=== PATIENT | female | born 1940 | race Caucasian/White ===

== ENCOUNTER 2023-04-02 10:15 | Inpatient (IN) | payer MEDICARE, BC ==
[~2023-04-02] VITALS: Ht 165.1 cm; Wt 68.3 kg
[2023-04-15 12:29] LABS: BASOPHILS # (AUTO) 0.1 X10'3 (0-0.2); BASOPHILS % (AUTO) 0.9 % (0-1); EOSINOPHILS # (AUTO) 0.2 X10'3 (0-0.9); EOSINOPHILS % (AUTO) 2.6 % (0-6); LYMPHOCYTES # (AUTO) 1.7 X10'3 (1.1-4.8); LYMPHOCYTES % (AUTO) 18.9 % (21-51); MEAN CORPUSCULAR HEMOGLOBIN 27.1 PG (27.0-31.0); MEAN CORPUSCULAR VOLUME 82.1 FL (78-98); MEAN PLATELET VOLUME 7.8 FL (7.4-10.4); MONOCYTES # (AUTO) 0.8 X10'3 (0-0.9); MONOCYTES % (AUTO) 8.9 % (2-12); NEUTROPHILS # (AUTO) 6.1 X10'3 (1.8-7.7); NEUTROPHILS % (AUTO) 68.7 % (42-75); PRE OP HEMATOCRIT 38.6 % (35.0-45.0); PRE OP HEMOGLOBIN 12.7 g/dL (12.0-16.0); PRE OP PLATELET COUNT 274 X10'3 (140-440); PRE OP WHITE BLOOD COUNT 8.8 10'3 (4.8-10.8); RED CELL DISTRIBUTION WIDTH 17.4 % (11.5-14.5)
[2023-04-15 12:41] LABS: ALBUMIN 3.6 G/DL (3.4-5.0); ALKALINE PHOSPHATASE 87 IU/L (46-116); BLOOD UREA NITROGEN 20 MG/DL (7-18); CALCIUM 9.4 MG/DL (8.5-10.1); CHLORIDE 97 MMOL/L (99-107); CREATININE 1.25 MG/DL (0.40-0.90); PRE OP ALT 23 U/L (30-65); PRE OP ANION GAP 9 (8-16); PRE OP AST 27 U/L (10-37); PRE OP BILIRUB, TOTAL 0.6 MG/DL (0.0-1.0); PRE OP GLUCOSE 111 MG/DL (70-104); PRE OP POTASSIUM 3.7 MMOL/L (3.4-5.1); PRE OP SODIUM 133 MMOL/L (135-145); TOTAL CARBON DIOXIDE 26.9 MMOL/L (24-32); TOTAL PROTEIN 7.2 G/DL (6.4-8.2); eGFR 41 ML/MIN
[2023-04-15] MEDS ORDERED: PANT-47 PO (16:31)
[2023-04-15] MEDS ORDERED: ATOR40TA PO (16:31)
[2023-04-15] MEDS ORDERED: CLOP-32 PO (16:31)
[2023-04-15] MEDS ORDERED: FAMO40TA86 PO (16:31)
[2023-04-15] MEDS ORDERED: ASPI81TA52 PO (16:31)
[2023-04-15] MEDS ORDERED: DIPH-1055 PO (16:31)
[2023-04-15] MEDS ORDERED: METO-467 PO (16:31)
[2023-04-21] VITALS (24 sets, daily range): BP systolic 105–140; BP diastolic 50–78; PULSE 63–93; RESP 11–17; TEMP 97.4–98.1; O2SAT 90–99
[2023-04-21] MEDS ORDERED: ringers solution, lacted 1,000 ML IV SCH ×2 (05:00→07:25)
[2023-04-21] MEDS ORDERED: DOCUMENT DATE & TIME OF BETA-BLOCKER PO ONE (05:30)
[2023-04-21] MEDS ORDERED: metroNIDAZOLE-Flagyl 500mg/NS 100ML IVPB IV ONE (05:30)
[2023-04-21] MEDS ORDERED: MALTODEXTRIN/FRUCTOSE 0.68 KCAL/ML LIQUID 296ML BOTTLE PO ONE (05:30)
[2023-04-21] MEDS ORDERED: ceFOXitin 2GM-NS 100mL ADDvant 100 ML IV ONE (05:30)
[2023-04-21] MEDS ORDERED: famotidine 20mg tablet PO ONE (05:30)
[2023-04-21] MEDS ORDERED: tobramycin 40mg/ml inj ONE (07:02)
[2023-04-21] MEDS ORDERED: mineral oil 10ml sterile, topical TP ONE ×2 (07:02→07:23)
[2023-04-21] MEDS ORDERED: LIDOcaine 1% w/EPI 1:100,000 inj. MDV 50 ML VIAL ONE (07:03)
[2023-04-21] MEDS ORDERED: BUPIVAcaine/PF 2.5mg/ml (0.25%) 10ml vial ONE (07:03)
[2023-04-21] MEDS ORDERED: proCHLORperazine 10 MG/2 ml inj IV PRN (07:25)
[2023-04-21] MEDS ORDERED: morphine 2 MG/ML inj. syringe IV PRN (07:25)
[2023-04-21] MEDS ORDERED: ondansetron/PF 4mg/2ml inj IV PRN ×2 (07:25→14:25)
[2023-04-21] MEDS ORDERED: acetaminophen 1,000mg/100ml IV 100 ML IV PRN (07:25)
[2023-04-21] MEDS ORDERED: labetalol 20mg/4ml (5mg/ml) syringe IV PRN (07:25)
[2023-04-21] MEDS ORDERED: meperidine/PF 25mg/ml syringe IV PRN (07:25)
[2023-04-21] MEDS ORDERED: HYDROmorphone/PF 0.2 MG/ML SYRINGE IV PRN ×2 (07:25)
[2023-04-21] MEDS ORDERED: hydrALAZINE 20mg/ml inj. IV PRN (07:25)
[2023-04-21] MEDS ORDERED: fentaNYL /PF 50mcg/ml 5ml ampule ONE (07:35)
[2023-04-21] MEDS ORDERED: midazolam 1 mg/ML 2ml injection ONE (07:35)
[2023-04-21] MEDS ORDERED: sevoflurane 250ml liquid IH ONE (07:52)
[2023-04-21] MEDS ORDERED: rocuronium 10mg/ml inj IV ONE ×3 (08:23→13:57)
[2023-04-21] MEDS ORDERED: LIDOcaine 2% (20mg/ml) 5ml vial ONE (08:23)
[2023-04-21] MEDS ORDERED: propofol inj 20 ML IV ONE (08:23)
[2023-04-21] MEDS ORDERED: dexamethasone sod phosphate 4mg/ml inj. ONE (14:04)
[2023-04-21] MEDS ORDERED: ondansetron/PF 4mg/2ml inj ONE (14:04)
[2023-04-21] MEDS ORDERED: sugammadex 200mg/2ml injection IV ONE (14:06)
--- NOTE | 2023-04-21 14:20 | NUR ---
Received from OR via , accompanied by Anesthesiologist DR VILLAFANA and report given by Anesthesiolgist. VSS. 10 LITERS ON MASK AT 97%. IV IN LEFTWRIST 20G INTACT. F/C Addendum: 04/21/23 at 1619 by Codie Torres RN Amended: Links added.
[2023-04-21] MEDS ORDERED: HYDROcodone/acetaminophen 5mg/325mg tablet PO PRN (14:25)
[2023-04-21] MEDS ORDERED: naloxone 0.4 mg/ml inj IV PRN (14:25)
[2023-04-21] MEDS: morphine 4 MG/ML inj SYRINge IV PRN ×2 (14:56→15:10)
--- NOTE | 2023-04-21 16:10 | NUR ---
PATIENT MEETS DISCHARGE CRITERIA. PUT DENTURES BACK IN HER MOUTH. CALLED REPORT TO RN ON ORTHO AND TOOK PATIENT TO THE FLOOR. LOWERED AND LOCKED BED. CALL LIGHT AT [facility]. HOOKED PATIENT UP TO OXYGEN AT 5 LITERS. AND GAVE REPORT TO CHARGE NURSE THAT SHE NEEDED CONTINUOUS PULSE OX MONITORING Addendum: 04/21/23 at 1624 by Codie Torres RN Amended: Links added.
--- NOTE | 2023-04-21 16:23 | NUR ---
Report received from Codie MENDIETA. Patient on the unit. Family at bedside.
[2023-04-21] MEDS: metroNIDAZOLE-Flagyl 500mg/NS 100 ML IV SCH (16:50)
[2023-04-21] MEDS: ceFOXitin inj 1,000 MG in normal saline 100ml IV soln 100 ML IV SCH (17:52)
[2023-04-21] MEDS: potassium CL 20mEq in D5-1/2NS 1,000 ML IV SCH (17:52)
--- NOTE | 2023-04-21 18:37 | NUR ---
Report to Ike BARBER
[2023-04-21] MEDS: metoprolol tartrate 50mg tablet PO SCH (19:55)
[2023-04-21] MEDS: atorvastatin 20mg tablet PO SCH (19:55)
--- NOTE | 2023-04-21 20:00 | NUR ---
Agree with assessment done by Ike Morelos LVN.
[2023-04-21] MEDS ORDERED: famotidine 20mg tablet PO SCH (21:00)
[2023-04-22] VITALS (8 sets, daily range): BP systolic 95–106; BP diastolic 39–61; PULSE 55–78; RESP 15–16; TEMP 97–98.4; O2SAT 94–99
[2023-04-22] MEDS: metroNIDAZOLE-Flagyl 500mg/NS 100 ML IV SCH ×3 (00:09→15:06)
[2023-04-22] MEDS: ceFOXitin inj 1,000 MG in normal saline 100ml IV soln 100 ML IV SCH (00:10)
[2023-04-22 06:07] LABS: BASOPHILS % (AUTO) 0.2 % (0-1); EOSINOPHILS % (AUTO) 0 % (0-6); HEMATOCRIT 29.7 % (35.0-45.0); HEMOGLOBIN 9.7 g/dl (12.0-16.0); LYMPHOCYTES # (AUTO) 1.2 X10'3 (1.1-4.8); LYMPHOCYTES % (AUTO) 9.7 % (21-51); MEAN CORPUSCULAR HEMOGLOBIN 27.6 PG (27.0-31.0); MEAN CORPUSCULAR HGB CONC 32.5 g/dL (33.0-36.5); MEAN CORPUSCULAR VOLUME 84.9 FL (78-98); MEAN PLATELET VOLUME 7.7 FL (7.4-10.4); MONOCYTES # (AUTO) 0.9 X10'3 (0-0.9); MONOCYTES % (AUTO) 7.4 % (2-12); NEUTROPHILS # (AUTO) 10.5 X10'3 (1.8-7.7); NEUTROPHILS % (AUTO) 82.7 % (42-75); PLATELET COUNT 208 X10'3 (140-440); RED CELL DISTRIBUTION WIDTH 17.7 % (11.5-14.5); WHITE BLOOD COUNT 12.7 X10'3 (4.5-11.0)
[2023-04-22 06:13] LABS: ALBUMIN 2.2 G/DL (3.4-5.0); ANION GAP 7 (8-16); BLOOD UREA NITROGEN 12 MG/DL (7-18); CALCIUM 8.6 MG/DL (8.5-10.1); CHLORIDE 107 MMOL/L (99-107); GLUCOSE 143 MG/DL (70-104); POTASSIUM 3.3 MMOL/L (3.5-5.1); SODIUM 142 MMOL/L (135-145); TOTAL CARBON DIOXIDE 27.7 MMOL/L (24-32); eCRCL 39 ML/MIN; eGFR 53 ML/MIN
[2023-04-22] MEDS: pantoprazole 40mg Tablet.DR PO SCH (10:41)
[2023-04-22] MEDS: metoprolol tartrate 50mg tablet PO SCH ×2 (10:41→20:00)
[2023-04-22] MEDS: potassium CL 20mEq in D5-1/2NS 1,000 ML IV SCH (14:58)
[2023-04-22] MEDS ORDERED: potassium Cl 20 mEq SR tablet PO PRN (18:30)
[2023-04-22 21:05] LABS: HEMATOCRIT 29.9 % (35.0-45.0); HEMOGLOBIN 9.8 g/dl (12.0-16.0); MEAN CORPUSCULAR HEMOGLOBIN 27.1 PG (27.0-31.0); MEAN CORPUSCULAR HGB CONC 32.6 g/dL (33.0-36.5); MEAN CORPUSCULAR VOLUME 82.9 FL (78-98); MEAN PLATELET VOLUME 7.7 FL (7.4-10.4); PLATELET COUNT 226 X10'3 (140-440); RED BLOOD COUNT 3.61 X10'6 (4.20-5.60); RED CELL DISTRIBUTION WIDTH 17.8 % (11.5-14.5); WHITE BLOOD COUNT 13.2 X10'3 (4.5-11.0)
[2023-04-22] MEDS: famotidine 20mg tablet PO SCH (21:25)
[2023-04-22] MEDS: atorvastatin 20mg tablet PO SCH (21:25)
--- NOTE | 2023-04-23 06:33 | NUR ---
Problems reprioritized. Patient report given, questions answered & plan of care reviewed with echo Haney.
[2023-04-23 06:41] LABS: BASOPHILS % (AUTO) 0.3 % (0-1); EOSINOPHILS % (AUTO) 0.4 % (0-6); HEMATOCRIT 30.5 % (35.0-45.0); LYMPHOCYTES # (AUTO) 1.4 X10'3 (1.1-4.8); LYMPHOCYTES % (AUTO) 16.2 % (21-51); MEAN CORPUSCULAR HEMOGLOBIN 27.3 PG (27.0-31.0); MEAN CORPUSCULAR HGB CONC 32.7 g/dL (33.0-36.5); MEAN CORPUSCULAR VOLUME 83.7 FL (78-98); MEAN PLATELET VOLUME 7.7 FL (7.4-10.4); MONOCYTES # (AUTO) 0.8 X10'3 (0-0.9); NEUTROPHILS # (AUTO) 6.4 X10'3 (1.8-7.7); NEUTROPHILS % (AUTO) 74.1 % (42-75); PLATELET COUNT 190 X10'3 (140-440); RED BLOOD COUNT 3.64 X10'6 (4.20-5.60); RED CELL DISTRIBUTION WIDTH 17.7 % (11.5-14.5); WHITE BLOOD COUNT 8.7 X10'3 (4.5-11.0)
[2023-04-23 07:15] LABS: ALBUMIN 2.4 G/DL (3.4-5.0); ANION GAP 9 (8-16); BLOOD UREA NITROGEN 5 MG/DL (7-18); CALCIUM 8.4 MG/DL (8.5-10.1); CHLORIDE 105 MMOL/L (99-107); CREATININE 0.84 MG/DL (0.40-0.90); GLUCOSE 102 MG/DL (70-104); POTASSIUM 3.2 MMOL/L (3.5-5.1); SODIUM 142 MMOL/L (135-145); TOTAL CARBON DIOXIDE 28.2 MMOL/L (24-32); eCRCL 46 ML/MIN; eGFR 65 ML/MIN
[2023-04-23] MEDS: metoprolol tartrate 50mg tablet PO SCH ×2 (07:47→20:09)
[2023-04-23] MEDS: pantoprazole 40mg Tablet.DR PO SCH (07:47)
[2023-04-23 07:48] VITALS: BP 122/62; PULSE 64; RESP 15; TEMP 97.3; O2SAT 94
[2023-04-23] MEDS: lactose-reduced food (Ensure High Protein) 237ml bottle PO SCH ×3 (08:00→17:23)
[2023-04-23 10:30] VITALS: BP 118/60; PULSE 66; RESP 16; TEMP 97.2; O2SAT 98
[2023-04-23 15:55] VITALS: BP 118/64; PULSE 70; RESP 16; TEMP 98; O2SAT 96
[2023-04-23 18:00] VITALS: BP 109/47; PULSE 79; RESP 18; TEMP 98.4; O2SAT 94
--- NOTE | 2023-04-23 18:00 | NUR ---
I have reviewed and agree with interventions, assessments, and documentation by Olive Farah LVN.
--- NOTE | 2023-04-23 18:20 | NUR ---
Patient in room ORTHO 4009. I have received report from SUNIL HALL and had the opportunity to ask questions and assume patient care.
[2023-04-23 19:45] VITALS: BP 120/54; PULSE 86
[2023-04-23] MEDS: docusate sod 100mg capsule PO SCH (20:00)
[2023-04-23] MEDS: atorvastatin 20mg tablet PO SCH (20:08)
[2023-04-23] MEDS: famotidine 20mg tablet PO SCH (20:08)
[2023-04-23 22:00] VITALS: BP 98/52; PULSE 87; RESP 16; TEMP 98.3; O2SAT 92
--- NOTE | 2023-04-24 06:25 | NUR ---
Problems reprioritized. Patient report given, questions answered & plan of care reviewed with ANAM OROURKE.
[2023-04-24 06:30] VITALS: BP 114/56; PULSE 78; RESP 15; TEMP 97.9; O2SAT 97
[2023-04-24 06:32] LABS: BASOPHILS % (AUTO) 0.6 % (0-1); EOSINOPHILS # (AUTO) 0.1 X10'3 (0-0.9); EOSINOPHILS % (AUTO) 1.2 % (0-6); HEMATOCRIT 29.4 % (35.0-45.0); HEMOGLOBIN 9.7 g/dl (12.0-16.0); LYMPHOCYTES # (AUTO) 1.4 X10'3 (1.1-4.8); LYMPHOCYTES % (AUTO) 19.4 % (21-51); MEAN CORPUSCULAR HEMOGLOBIN 27.5 PG (27.0-31.0); MEAN CORPUSCULAR HGB CONC 32.9 g/dL (33.0-36.5); MEAN CORPUSCULAR VOLUME 83.4 FL (78-98); MEAN PLATELET VOLUME 7.8 FL (7.4-10.4); MONOCYTES # (AUTO) 0.7 X10'3 (0-0.9); MONOCYTES % (AUTO) 9.1 % (2-12); NEUTROPHILS # (AUTO) 5.1 X10'3 (1.8-7.7); NEUTROPHILS % (AUTO) 69.7 % (42-75); PLATELET COUNT 193 X10'3 (140-440); RED BLOOD COUNT 3.52 X10'6 (4.20-5.60); RED CELL DISTRIBUTION WIDTH 17.3 % (11.5-14.5); WHITE BLOOD COUNT 7.3 X10'3 (4.5-11.0)
[2023-04-24 06:43] LABS: ALBUMIN 2.1 G/DL (3.4-5.0); ANION GAP 4 (8-16); BLOOD UREA NITROGEN 7 MG/DL (7-18); CALCIUM 8.4 MG/DL (8.5-10.1); CHLORIDE 108 MMOL/L (99-107); CREATININE 0.78 MG/DL (0.40-0.90); GLUCOSE 98 MG/DL (70-104); POTASSIUM 3.9 MMOL/L (3.5-5.1); SODIUM 142 MMOL/L (135-145); TOTAL CARBON DIOXIDE 29.8 MMOL/L (24-32); eCRCL 50 ML/MIN; eGFR 71 ML/MIN
[2023-04-24] MEDS ORDERED: psyllium seed 5.8 gm packet (sugar-free) PO SCH (08:00)
[2023-04-24] MEDS: metoprolol tartrate 50mg tablet PO SCH (08:10)
[2023-04-24] MEDS: lactose-reduced food (Ensure High Protein) 237ml bottle PO SCH ×2 (08:10→13:04)
[2023-04-24] MEDS: diphenhydrAMINE 25mg capsule PO PRN ×2 (08:10→15:03)
[2023-04-24] MEDS: docusate sod 100mg capsule PO SCH (08:10)
[2023-04-24] MEDS: pantoprazole 40mg Tablet.DR PO SCH (08:10)
[2023-04-24 10:00] VITALS: BP 116/78; PULSE 78; RESP 15; TEMP 97.6; O2SAT 98
--- NOTE | 2023-04-24 17:57 | NUR ---
Pt discharged at 1545. Pt's daughter picked up pt. Pt left in stable condition. VSS
== END 2023-04-24 17:45 | disposition home or self-care (01) | DRG 395 ==
LOC: PAS IN 04-21 05:20 → ORTHO 4S 04-21 16:15
PROVIDERS: ADMIT Colon & Rectal Surgery; ATTEND Colon & Rectal Surgery
PROC: 0DBP8ZZ Excision of Rectum, Via Natural or Artificial Opening Endoscopic (ICD-10-PCS; 2023-04-21)
PROC: 8E0W8CZ Robotic Assisted Procedure of Trunk Region, Via Natural or Artificial Opening Endoscopic (ICD-10-PCS; 2023-04-21)
PROC: 0DBP8ZZ Excision of Rectum, Via Natural or Artificial Opening Endoscopic (ICD-10-PCS; principal; 2023-04-21 07:52)
DX: K62.89 Other specified diseases of anus and rectum (principal); K21.9 Gastro-esophageal reflux disease without esophagitis; K62.1 Rectal polyp; I48.91 Unspecified atrial fibrillation; G47.33 Obstructive sleep apnea (adult) (pediatric); E87.6 Hypokalemia; Z79.899 Other long term (current) drug therapy
CPT/HCPCS: 36415; 80048; 80053; 82948; 85025; 85027; 86885; 86900; 86901; 86920; 87081; 88305; A4615; A4618; A6449; A7000; C1758; C1769; C1889; G0378; J0694; J1100; J2250; J2270; J2405; J2704; J3010; J3260; J3480; J3490; J7120; Q0163

== ENCOUNTER 2025-03-16 06:05 | Day surgery (SDC) | payer MEDICARE, BC ==
[2025-03-15 10:57] LABS: MEAN PLATELET VOLUME 8.1 FL (7.4-10.4); RED CELL DISTRIBUTION WIDTH 15.8 % (11.5-14.5)
[2025-03-15 11:12] LABS: CREATININE 1.11 MG/DL (0.40-0.90); TOTAL CARBON DIOXIDE 26.8 MMOL/L (24-32); eGFR 47 ML/MIN
[2025-03-15 11:14] LABS: APTT 24 SECONDS (22-32); INR 1.0 INR
[~2025-03-16] VITALS: Ht 167.6 cm; Wt 64.5 kg
[2025-03-16] VITALS (12 sets, daily range): BP systolic 120–158; BP diastolic 59–86; PULSE 60–65; RESP 13–16; TEMP 98.2; O2SAT 95–100
[~2025-03-16 06:05] MED LIST: ATOR40TA PO; DIPH-1212 PO; FAMO40TA86 PO; METO-467 PO; PANT-47 PO
[2025-03-16] MEDS ORDERED: FAMO40TA7 PO (06:34)
[2025-03-16] MEDS ORDERED: CLOP75TA34 PO (06:34)
[2025-03-16] MEDS ORDERED: normal saline 1000ml 1,000 ML IV PRN (06:40)
[2025-03-16] MEDS ORDERED: ceFAZolin 2,000MG in D5W 50mL IV ONE (06:40)
[2025-03-16] MEDS ORDERED: vancomycin/NS 1 GM ADD-VANTAGE 250 ML IV ONE (06:40)
--- NOTE | 2025-03-16 06:41 | ELECTROCARDIOGRAPH REPORT ---
[facility] Test Date: 2025-03-16 Test Time: 06:41:36 Pat Name: COLEMAN MCFARLAND Department: [facility] Patient ID: [facility]-[id number] Room: Gender: F [employer] Blasting: INNA : 1940 Requested By: PIYUSH NOEL Order Number: [id number] Reading MD: Dr. ROBERTO Noel Measurements Intervals Silva Rate: 44 P: 41 MO: 161 QRS: 50 QRSD: 98 T: 59 QT: 482 QTc: 413 Interpretive Statements Sinus bradycardia Abnormal R-wave progression, early transition Electronically Signed On 03-16-2025 17:26:[address] ROBERTO Noel Please click the below link to view image of tracing.
[2025-03-16] MEDS ORDERED: midazolam 1 mg/ML 2ml injection ONE (07:35)
[2025-03-16] MEDS ORDERED: fentaNYL/PF 50MCG/1 ML 2ML syringe ONE (07:35)
[2025-03-16] MEDS ORDERED: LIDOcaine 1% W/epiNEPHrine 1:100,000 20ml vial ONE (07:35)
[2025-03-16] MEDS ORDERED: CEPH-585 PO (10:11)
[2025-03-16] MEDS ORDERED: METO-384 PO (10:33)
[2025-03-16] MEDS ORDERED: normal saline 1000ml 1,000 ML IV SCH (10:35)
[2025-03-16] MEDS: vancomycin/NS 1 GM ADD-VANTAGE 250 ML IV ONE (12:04)
--- NOTE | 2025-03-16 13:24 | RADIOLOGY REPORT ---
DI CHEST,TWO VIEWS CLINICAL HISTORY: S/P pacemaker COMPARISON: None TECHNIQUE: Frontal and lateral view of the chest was obtained FINDINGS: Lines and Tubes: Left-sided pacemaker. Lungs: No focal consolidation. Pleura: No effusion. No pneumothorax. Cardiomediastinal contours: Unremarkable Bones: No acute osseous abnormality. IMPRESSION: No acute cardiopulmonary disease.
--- NOTE | 2025-03-17 06:49 | CARDIOLOGY REPORT ---
DATE OF SERVICE: 03/16/2025 DICTATING PHYSICIAN: ROBERTO Noel MD PERMANENT PACEMAKER IMPLANTATION REPORT GENDER: Female. AGE: 85. HEIGHT: 168 cm. WEIGHT: 64.5 kg. BODY SURFACE AREA: 1.73 m2. INDICATION: The patient is an 85-year-old postmenopausal female with history of hypertension, hyperlipidemia, sleep apnea, dizziness, sick sinus syndrome, and supraventricular tachycardia. The patient has been having exertional fatigue, tiredness, and then having symptomatic tachy and ash episodes. The patient had event monitor from 01/07/2025 to 01/14/2025, which showed lowest heart rate of 46. There were 29 episodes of SVT. In view of these symptoms, the patient at this time prefers to proceed with permanent pacemaker implantation. Risks, benefits and alternative options discussed. Informed consent obtained. PREPROCEDURE DIAGNOSES: Sick sinus syndrome, symptomatic tachy and ash episodes. POSTOPERATIVE DIAGNOSES: Sick sinus syndrome, symptomatic tachy and ash episodes. PROCEDURES DONE: * Fluoroscopy. * AV sequential pacemaker implantation. * Conscious sedation 90 minutes. SURGEON: ROBERTO Noel MD, [facility] [employer] SURGEON: None. ANESTHESIOLOGIST: None. ANESTHESIA: Conscious local anesthesia. COMPLICATIONS: None. BLOOD LOSS: Less than 5 mL. DESCRIPTION OF PROCEDURE: Left infraclavicular area was prepped and draped in the usual fashion. Two separate accesses were obtained to the left subclavian vein using micropuncture technique and micropuncture wire placed in the right atrium. A horizontal incision was placed in the left infraclavicular area. Using blunt dissection, electrocautery, prepectoral subcutaneous pacemaker pocket was fashioned. External ends of the J-wires were retrieved into the pacemaker pocket. Two 7-Faroese sheaths were advanced over both the wires. Through one of them, RV lead advanced to the RV apex, screwed into the RV apex. Appropriate pacing and sensing thresholds obtained, sheath was removed by peel-away technique and lead anchored to the subcutaneous tissue with Ethibond. Through the second 7-Faroese sheath, atrial lead advanced to the right atrium. J wires formed, screwed into the right atrial appendage. Appropriate pacing and sensing thresholds obtained, sheath was removed by peel-away technique. Lead anchored to the subcutaneous tissue with Ethibond. Leads connected to appropriate sockets of the pulse generator. Set screws were tightened. Tug test performed and the pacemaker was suspended into the pacemaker pocket. The pocket was closed with continuous 0 Vicryl, followed by interrupted 2-0 Vicryl. Third layer of interrupted 2-0 Vicryl applied. Skin had domingo were placed. The patient tolerated the procedure with no complications. TECHNICAL INFORMATION: Device used was Medtronic MRI-compatible [place] PPM, model number [id number], serial number [id number], Medtronic 7925, left pectoral location. RIGHT ATRIAL LEAD: Model number 4076, 52 cm long, serial number [id number]. Medtronic right atrial appendage, and then P-wave amplitude 2.9 mV ohms of impedance. Pacing threshold 0.50 at 0.4 milliseconds. RV LEAD: Model number 5076, 58 cm long, and then serial number [id number] Medtronic, 03/16/2025, R-wave amplitude of 13.3 and pacing impedance of 1064. Pacing threshold of 0.3 at 0.4 milliseconds tachy and ash episodes, underwent successful AV sequential pacemaker with no complications. . ROBERTO Noel MD TID: [id number] RECEIPT: [id number] RONALD/CASH/SHANTAL cc: SABINA MONTOYA MD
== END 2025-03-16 15:55 | disposition home or self-care (01) ==
LOC: SSTAY O 06:05
PROVIDERS: ATTEND Internal Medicine Cardiovascular Disease
DX: I49.5 Sick sinus syndrome (principal); I47.10 Supraventricular tachycardia, unspecified; E78.5 Hyperlipidemia, unspecified; G47.30 Sleep apnea, unspecified; I10 Essential (primary) hypertension; Z95.0 Presence of cardiac pacemaker; Z78.0 Asymptomatic menopausal state; Z79.01 Long term (current) use of anticoagulants; Z79.899 Other long term (current) drug therapy
CPT/HCPCS: 33208; 36415; 71046; 80048; 85025; 85610; 85730; 93005; 99152; 99153; A4565; A6402; C1785; C1898; J0690; J1200; J2250; J3010; J3370; J3490; J7030; Z7610; A6449